=== PATIENT | male | born 1985 | race Caucasian/White ===

== ENCOUNTER 2016-10-04 00:24 | Emergency (ER) | payer BC ==
--- NOTE | ~2016-10-04 | ER ---
PATIENT'S NAME: CATHY RICHARDS [facility] AGE: 31 Y [address] ROOM: [place] [id number] LOCATION: [facility] ADMIT DATE: 10/04/2016 ER/Outpatient Report DISCHARGE DATE: FAMILY PHYSICIAN: PHYSICIAN, NO ATTENDING PHYSICIAN: Lucy Juarez Admission date and time are documented in the medical record. I saw the patient at 0035 hours. CHIEF COMPLAINT: Nausea, vomiting, abdominal cramping and pain. HISTORY OF PRESENT ILLNESS: The patient is a 31-year-old male who presented to the emergency room by private vehicle for evaluation. The patient states he thinks that he ate some tainted food and got food poisoning about 4 hours prior to admission in the emergency room. Four hours ago, he had acute onset of nausea, vomiting. He vomited 20+ times. He has generalized abdominal pain, one episode of diarrhea, no blood in his vomitus or diarrhea. No lightheadedness, dizziness, syncope, or near syncope. No fall or trauma. No headache, eyes, ears, nose, throat, neck, or spine pain. Prior to this, he was having no evidence of colds, coughs, flus, fever, chills, or sweats. No urinary symptomatology. No chest pain or shortness of breath. No joint or muscle swelling, redness, or pain. No skin eruptions or rash. No history of neuro changes, psych issues, or endocrine problems. HOME MEDICATIONS: Testosterone. ALLERGIES: ADVIL, PENICILLIN. SOCIAL HISTORY: Nonsmoker. Occasional intake of alcohol. SIGNIFICANT PAST MEDICAL HISTORY: Negative. OPERATIONS: None. REVIEW OF SYSTEMS: All systems reviewed by me are negative with the exception of those discussed in the history of present illness. [facility] 31 [facility] [address] ROOM: [place], [place] [address] LOCATION: [facility] ADMIT DATE: 10/04/2016 ER/Outpatient Report DISCHARGE DATE: FAMILY PHYSICIAN: PHYSICIAN, NO ATTENDING PHYSICIAN: Lucy Juarez PHYSICAL EXAMINATION: VITAL SIGNS: Temperature 99.4, pulse 120, regular, respirations 24, and O2 sat on room air is 97%. HEAD: Normocephalic. EYES, EARS, NOSE, THROAT: Clear. Mucous membranes moist. NECK: Negative. LUNGS: Clear. No rales, rhonchi, or wheezes. HEART: Regular. Pulses are palpable. ABDOMEN: Soft. Some generalized tenderness. No true guarding or rigidity. No rebound tenderness. No distention. Decreased bowel tones. No CVA tenderness. EXTREMITIES: Intact. NEUROVASCULAR: Intact. SKIN: Clear. LABORATORY DATA: Procalcitonin was 0.15. Lactate was 2.9. H. pylori was negative. CMS was normal except for an elevated glucose 145. Amylase, lipase were normal. CRP was less than 0.29. White count was 16,100, 88 segs, 5 lymphs, 6 monos, 1 eo, hemoglobin was 17.2 with hematocrit 50.6, and platelet count was 220,000. EMERGENCY DEPARTMENT COURSE: I did start the patient on IV normal saline, fluids, gave him 2 L here in the emergency room. I gave him fentanyl 50 mcg IV for pain, Zofran 8 mg IV for nausea, vomiting, and Reglan 10 mg IV in the emergency room for nausea, vomiting. The patient did well. It did calm down his nausea and his abdominal cramping and retching. IMPRESSION: Possible ingestion of tainted food with nausea, vomiting, and abdominal pain. PLAN: The patient dismissed home. Observation. Activity as tolerated. Clear liquid diet for 24 hours and advance diet as tolerated. Zofran 4 mg ODT as needed for nausea, vomiting. [place] 7.5/325 as need for pain #12. Rest. Continue home medications and care. Follow up with personal physician as needed. Discussion ensued with the patient and his concerning my findings and recommendations, they understand. LUCY JUAREZ MD SDS/modl PATIENT'S NAME: CATHY RICHARDS [facility] AGE: 31 Y [address] ROOM: [place], [place] [address] LOCATION: ED ADMIT DATE: 10/04/2016 ER/Outpatient Report DISCHARGE DATE: FAMILY PHYSICIAN: PHYSICIAN, NO ATTENDING PHYSICIAN: Lucy Juarez /[id number] d: 10/04/16 0231 t: 10/04/16 1812, OUTPATIENT REPORT
[2016-10-04 01:04] LABS: BASOPHIL % 0.2 %; EOSINOPHIL # 0.1 K/uL (0.0-0.5); EOSINOPHIL % 0.7 %; HEMATOCRIT 50.6 % (37.0-53.0); HEMOGLOBIN 17.2 g/dL (12.0-17.0); IMMATURE GRANULOCYTE # 0.1 K/uL (0.0-0.3); IMMATURE GRANULOCYTE % 0.4 %; LYMPHOCYTE # 0.8 K/uL (0.8-4.0); LYMPHOCYTE % 4.9 %; MCH 31.2 pg (27.0-34.0); MCV 91.7 fl (83.0-98.0); MPV 8.4 fl (9.4-12.4); NEUTROPHIL # (ANC) 14.2 K/uL (1.4-9.0); NEUTROPHIL % 87.8 %; NRBC % 0 /100WBC (0-0.00); PLATELET COUNT 220 K/uL (150-450); RBC 5.52 M/uL (4.00-6.00); RDW-CV 12.1 % (11.9-14.6)
[2016-10-04 01:06] LABS: WBC 16.1 K/uL (4.0-11.0)
[2016-10-04 01:28] LABS: ALBUMIN 4.2 gm/dL (3.5-5.0); ALK PHOS 65 IU/L (33-138); ALT 27 IU/L (12-78); ANION GAP 16.8 (10.0-19.0); AST 19 IU/L (10-40); BLOOD UREA NITROGEN 17 mg/dL (6-24); CALCIUM 8.6 mg/dL (8.5-10.5); CHLORIDE 104 mMol/L (96-110); CO2 23 mMol/L (22-32); CREATININE 1.3 mg/dL (0.6-1.3); ESTIMATED GFR (MDRD EQUATION) > 60; POTASSIUM 3.8 mMol/L (3.7-5.1); SODIUM 140 mMol/L (135-145); TOTAL BILIRUBIN 0.6 mg/dL (0.0-1.5); TOTAL PROTEIN 7.4 g/dL (6.0-8.4)
== END 2016-10-04 02:37 | disposition disaster alternative care site (69) ==
LOC: GMED 00:24
PROVIDERS: Emergency Medicine
DX: R11.2 Nausea with vomiting, unspecified (principal); R10.84 Generalized abdominal pain; Z88.0 Allergy status to penicillin; Z88.8 Allergy status to other drugs, medicaments and biological substances
CPT/HCPCS: J2405; J2765; J3010; J7030